=== PATIENT | male | born 1990 | race Caucasian/White ===

== ENCOUNTER 2018-09-18 18:54 | Emergency (ER) | payer SELFPAY ==
[2018-09-18] MEDS ORDERED: Lidocaine 1% (PF) 30 ML VIAL ONE (19:40)
== END 2018-09-18 20:20 | disposition home or self-care (01) ==
LOC: ERS 18:54
DX: S61.012A Laceration without foreign body of left thumb without damage to nail, initial encounter (principal); F32.9 Major depressive disorder, single episode, unspecified; F17.200 Nicotine dependence, unspecified, uncomplicated; W26.1XXA Contact with sword or dagger, initial encounter; Z79.899 Other long term (current) drug therapy
CPT/HCPCS: 12001; J2001